=== PATIENT | male | born 1940 | race Caucasian/White ===

== ENCOUNTER → 2016-07-03 | Outpatient (CLI) | payer MEDICARE, BC ==
[~2016-07-03] MED LIST: BACLOFEN10 M1 PO; BYETTA 10M600 MCG/SY SQ; COLACE 100100 MG/CAP PO; FOSINOPRIL20 MG PO; GOOD NEIGHBOR325 MG PO; LASIX 20MG TABL20 MG PO; LASIX20 M1 PO; LISINOPRIL10 MG PO; NEURONTIN100 M1 PO; NORCO 325 MG-101 TA1 PO; OXYCODONE5 M1 PO; PIOGLITAZONE HY45 MG PO; PIOGLITAZONE45 MG PO; PREDNISONE10 M1 PO; SIMVASTATIN40 M1 PO; SIMVASTATIN40 MG PO; TORSEMIDE10 MG PO
== END ==
LOC: LAB 09:27
DX: E11.9 Type 2 diabetes mellitus without complications (principal); E78.2 Mixed hyperlipidemia; I10 Essential (primary) hypertension; E61.1 Iron deficiency

== ENCOUNTER → 2016-09-04 | Outpatient (CLI) | payer MEDICARE, BC ==
[2016-01-07 13:58] VITALS: BP 157/85
== END ==
LOC: LAB 16:55
DX: E11.9 Type 2 diabetes mellitus without complications (principal); E78.2 Mixed hyperlipidemia; I10 Essential (primary) hypertension; E61.1 Iron deficiency

== ENCOUNTER 2016-09-12 19:26 | Inpatient (IN) | payer MEDICARE, BC ==
[~2016-09-12 19:26] MED LIST changes: -LASIX20 M1 PO; -PIOGLITAZONE HY45 MG PO; -SIMVASTATIN40 M1 PO
[2016-09-13 14:07] VITALS: BP 98/47
[2016-09-13 14:10] VITALS: BP 98/47
[2016-09-13] MEDS ORDERED: LASIX20 M1 PO (14:15)
[2016-09-13] MEDS ORDERED: SIMVASTATIN40 M1 PO (14:17)
[2016-09-13] MEDS ORDERED: PIOGLITAZONE HY45 MG PO (14:18)
[2016-09-13 18:21] VITALS: BP 138/41
[2016-09-13 18:22] VITALS: BP 137/41
[2016-09-13 20:00] VITALS: BP 115/66
[2016-09-13 23:03] VITALS: BP 90/49
[2016-09-14] VITALS (8 sets, daily range): BP systolic 87–124; BP diastolic 50–67
== END 2016-09-14 08:18 | disposition short-term general hospital (02) | DRG 291 ==
LOC: MED/SURG 09-13 13:58
PROVIDERS: ADMIT Internal Medicine
PROC: 5A1935Z Respiratory Ventilation, Less than 24 Consecutive Hours (ICD-10-PCS; principal; 2016-09-14)
PROC: 0BH17EZ Insertion of Endotracheal Airway into Trachea, Via Natural or Artificial Opening (ICD-10-PCS; 2016-09-14)
DX: I50.21 Acute systolic (congestive) heart failure (principal); A41.9 Sepsis, unspecified organism; R65.21 Severe sepsis with septic shock; N17.9 Acute kidney failure, unspecified; L97.811 Non-pressure chronic ulcer of other part of right lower leg limited to breakdown of skin; E11.40 Type 2 diabetes mellitus with diabetic neuropathy, unspecified; M51.16 Intervertebral disc disorders with radiculopathy, lumbar region; J96.00 Acute respiratory failure, unspecified whether with hypoxia or hypercapnia; Z87.891 Personal history of nicotine dependence
CPT/HCPCS: A4500; J1650; J1940; J2250

== ENCOUNTER → 2016-09-12 | Outpatient (CLI) | payer MEDICARE, BC ==
[2016-09-12 10:54] VITALS: BP 135/73
[2016-09-12 12:26] VITALS: BP 142/84
== END ==
LOC: AMSURD 10:38
DX: E11.9 Type 2 diabetes mellitus without complications (principal); I50.21 Acute systolic (congestive) heart failure; E78.2 Mixed hyperlipidemia; M54.16 Radiculopathy, lumbar region
CPT/HCPCS: A4354

== ENCOUNTER → 2016-11-09 | Outpatient (CLI) | payer MEDICARE, BC ==
[2016-09-14 08:00] VITALS: BP 105/59
[~2016-11-09] MED LIST changes: +LASIX20 M1 PO; +PIOGLITAZONE HY45 MG PO; +SIMVASTATIN40 M1 PO
== END ==
LOC: CARDREHAB 15:06
DX: I10 Essential (primary) hypertension (principal); E11.9 Type 2 diabetes mellitus without complications; E78.2 Mixed hyperlipidemia; E61.1 Iron deficiency
CPT/HCPCS: G0399

== ENCOUNTER → 2017-06-26 | Outpatient (CLI) | payer MEDICARE, BC ==
[2016-09-14 08:00] VITALS: BP 105/59
[2017-06-26 18:54] LABS: EOS # 0.1 (0.04-0.40); EOS % 1.5 % (0.0-4.0); HEMATOCRIT 54.2 % (42.0-52.0); LYMPH# 1.8 (1.50-4.00); MEAN CELL VOLUME 85 fl (78-100); MEAN CORPUSCULAR HEMOGLOBIN 27 pg (27-31); MEAN CORPUSCULAR HGB CONC 31 g/dL (33-37); MEAN PLATELET VOLUME 9.4 fl (7.4-10.4); MONO # 0.6 (0.20-0.80); NEU # 5.8 (1.40-6.50); PLATELET COUNT 187 K/mm3 (130-400); RED CELL DISTRIBUTION WIDTH 18.7 % (11.5-14.5); WHITE BLOOD COUNT 8.4 K/mm3 (4.8-10.8)
[2017-06-26 19:09] LABS: ALBUMIN 3.9 g/dL (3.5-5.0); BUN/CREATININE RATIO 28.8 (6.0-26.0); CALCIUM 9.3 mg/dL (8.4-10.2); POTASSIUM 4.8 mmol/L (3.6-5.0); TOTAL BILIRUBIN 0.8 mg/dL (0.2-1.3); TOTAL PROTEIN 6.8 g/dL (6.3-8.2)
== END ==
LOC: LAB 17:11
PROVIDERS: Internal Medicine
DX: E11.9 Type 2 diabetes mellitus without complications (principal); I10 Essential (primary) hypertension; J43.1 Panlobular emphysema; Z88.5 Allergy status to narcotic agent

== ENCOUNTER → 2017-09-14 | Outpatient (CLI) | payer MEDICARE, BC ==
[2016-09-14 08:00] VITALS: BP 105/59
[2017-09-14 15:43] LABS: EOS # 0.1 (0.04-0.40); EOS % 1.7 % (0.0-4.0); HEMATOCRIT 41.1 % (42.0-52.0); HEMOGLOBIN 13.3 g/dL (13.5-18.0); LYMPH# 3.2 (1.50-4.00); MEAN CELL VOLUME 91 fl (78-100); MEAN CORPUSCULAR HEMOGLOBIN 29 pg (27-31); MEAN CORPUSCULAR HGB CONC 32 g/dL (33-37); MEAN PLATELET VOLUME 8.9 fl (7.4-10.4); MONO # 0.7 (0.20-0.80); NEU # 3.5 (1.40-6.50); PLATELET COUNT 244 K/mm3 (130-400); RED BLOOD COUNT 4.54 M/mm3 (4.20-5.60); RED CELL DISTRIBUTION WIDTH 14.3 % (11.5-14.5); WHITE BLOOD COUNT 7.5 K/mm3 (4.8-10.8)
[2017-09-14 15:47] LABS: BUN/CREATININE RATIO 17.5 (6.0-26.0); POTASSIUM 5.2 mmol/L (3.6-5.0); TOTAL BILIRUBIN 1.1 mg/dL (0.2-1.3); TOTAL PROTEIN 7.2 g/dL (6.3-8.2)
== END ==
LOC: LAB 15:18
PROVIDERS: Internal Medicine
DX: I10 Essential (primary) hypertension (principal); E11.9 Type 2 diabetes mellitus without complications; J43.1 Panlobular emphysema; Z88.5 Allergy status to narcotic agent

== ENCOUNTER → 2018-01-10 | Outpatient (CLI) | payer MEDICARE, BC ==
[2016-09-14 08:00] VITALS: BP 105/59
[2018-01-10 17:49] LABS: EOS # 0.2 (0.04-0.40); EOS % 2.4 % (0.0-4.0); HEMATOCRIT 45.7 % (42.0-52.0); HEMOGLOBIN 14.8 g/dL (13.5-18.0); LYMPH# 2.6 (1.50-4.00); MEAN CELL VOLUME 91 fl (78-100); MEAN CORPUSCULAR HEMOGLOBIN 29 pg (27-31); MEAN CORPUSCULAR HGB CONC 32 g/dL (33-37); MEAN PLATELET VOLUME 9.4 fl (7.4-10.4); MONO # 0.6 (0.20-0.80); PLATELET COUNT 210 K/mm3 (130-400); RED BLOOD COUNT 5.03 M/mm3 (4.20-5.60); RED CELL DISTRIBUTION WIDTH 13.7 % (11.5-14.5); WHITE BLOOD COUNT 6.4 K/mm3 (4.8-10.8)
[2018-01-10 17:55] LABS: CALCIUM 8.6 mg/dL (8.4-10.2); POTASSIUM 4.3 mmol/L (3.6-5.0); TOTAL BILIRUBIN 0.9 mg/dL (0.2-1.3); TOTAL PROTEIN 6.9 g/dL (6.3-8.2)
== END ==
LOC: LAB 15:36
PROVIDERS: Internal Medicine
DX: I10 Essential (primary) hypertension (principal); E11.9 Type 2 diabetes mellitus without complications; J43.1 Panlobular emphysema

== ENCOUNTER → 2018-03-29 | Outpatient (CLI) | payer MEDICARE, BC ==
[2016-09-14 08:00] VITALS: BP 105/59
[2018-03-29 17:50] LABS: CALCIUM 8.5 mg/dL (8.4-10.2)
== END ==
LOC: LAB 17:20
PROVIDERS: Internal Medicine
DX: I50.30 Unspecified diastolic (congestive) heart failure (principal); E11.9 Type 2 diabetes mellitus without complications

== ENCOUNTER → 2018-11-26 | Outpatient (CLI) | payer MEDICARE, BC ==
[2016-09-14 08:00] VITALS: BP 105/59
[2018-11-26 15:31] LABS: EOS # 0.1 (0.04-0.40); EOS % 1.8 % (0.0-4.0); HEMATOCRIT 40.7 % (42.0-52.0); HEMOGLOBIN 12.5 g/dL (13.5-18.0); LYMPH# 2.9 (1.50-4.00); MEAN CELL VOLUME 92 fl (78-100); MEAN CORPUSCULAR HEMOGLOBIN 28 pg (27-31); MEAN CORPUSCULAR HGB CONC 31 g/dL (33-37); MEAN PLATELET VOLUME 8.5 fl (7.4-10.4); MONO # 0.6 (0.20-0.80); NEU # 3.9 (1.40-6.50); PLATELET COUNT 267 K/mm3 (130-400); RED BLOOD COUNT 4.42 M/mm3 (4.20-5.60); RED CELL DISTRIBUTION WIDTH 14.6 % (11.5-14.5); WHITE BLOOD COUNT 7.6 K/mm3 (4.8-10.8)
[2018-11-26 15:48] LABS: POTASSIUM 4.5 mmol/L (3.5-5.1)
[2018-11-26 15:49] LABS: ALBUMIN 3.8 g/dL (3.4-4.8); CALCIUM 9.4 mg/dL (8.3-10.5)
[2018-11-26 15:51] LABS: TOTAL PROTEIN 6.8 g/dL (6.2-8.1)
[2018-11-26 15:53] LABS: TOTAL BILIRUBIN 0.6 mg/dL (0.2-1.2)
[2018-11-26 16:45] LABS: URINE APPEARANCE HAZY; URINE BILIRUBIN NEGATIVE (NEGATIVE); URINE BLOOD NEGATIVE (NEGATIVE); URINE COLOR YELLOW; URINE GLUCOSE NEGATIVE (NEGATIVE); URINE KETONE NEGATIVE (NEGATIVE); URINE LEUKOCYTE ESTERASE NEGATIVE (NEGATIVE); URINE NITRATE NEGATIVE (NEGATIVE); URINE PROTEIN(semi-quant) TRACE mg/dL (NEGATIVE); URINE UROBILINOGEN NORMAL (NORMAL)
[2018-11-26 16:46] LABS: URINE MUCUS PRESENT (NOT PRESENT)
== END ==
LOC: LAB 15:06
PROVIDERS: Internal Medicine
DX: E11.9 Type 2 diabetes mellitus without complications (principal); N30.00 Acute cystitis without hematuria; I51.7 Cardiomegaly; I10 Essential (primary) hypertension; J43.9 Emphysema, unspecified; M89.8X8 Other specified disorders of bone, other site; I99.8 Other disorder of circulatory system; Z98.890 Other specified postprocedural states

== ENCOUNTER → 2018-12-19 | Outpatient (CLI) | payer MEDICARE, BC ==
[2016-09-14 08:00] VITALS: BP 105/59
== END ==
LOC: RAD 13:30
DX: G31.9 Degenerative disease of nervous system, unspecified (principal); I67.82 Cerebral ischemia; R22.0 Localized swelling, mass and lump, head
CPT/HCPCS: A9585